=== PATIENT | male | born 1940 | race Caucasian/White ===

== ENCOUNTER → 2016-08-11 | Outpatient (REF) | payer OTHER ==
[2016-08-11 19:29] LABS: ALBUMIN 3.7 GM/DL (3.2-5.2); ALBUMIN/GLOBULIN RATIO 1.19 (1.00-1.93); BILIRUBIN,TOTAL 0.6 MG/DL (0.2-1.0); CALCIUM LEVEL 8.2 MG/DL (8.8-10.2); CREATININE FOR GFR 1.79 MG/DL (0.70-1.30); GLOMERULAR FILTRATION RATE 39.3 (>42); POTASSIUM SERUM 4.1 MEQ/L (3.5-5.1); TOTAL PROTEIN 6.8 GM/DL (6.4-8.2)
[2016-08-11 19:53] LABS: BASO # 0.1 K/mm3 (0.0-0.2); BASO % 0.8 % (0.0-1.0); EOS # 0.3 K/mm3 (0.0-0.50); EOS % 3.7 % (0.0-3.0); LARGE UNSTAINED CELL # 0.2 K/mm3 (0.0-0.4); LARGE UNSTAINED CELL % 2.3 % (0.0-4.0); LYMPH # 1.6 K/mm3 (1.5-4.5); LYMPH % 18.9 % (24.0-44.0); MEAN CORPUSCULAR HEMOGLOBIN 32.6 pg (27.0-33.0); MEAN CORPUSCULAR HGB CONC 33.6 g/dl (32.0-36.5); MONO # 0.6 K/mm3 (0.0-0.8); MONO % 7.4 % (0.0-5.0); NEUTROPHILS # 5.7 K/mm3 (1.8-7.7); PLATELET COUNT, AUTOMATED 219 k/mm3 (150-450); RED CELL DISTRIBUTION WIDTH 14.3 % (11.5-14.5); WHITE BLOOD COUNT 8.5 K/mm3 (4.0-10.0)
== END ==
LOC: M SFHCADAM 11:20
PROVIDERS: ATTEND Physician Assistant Medical
DX: I70.1 Atherosclerosis of renal artery (principal); N18.3 Chronic kidney disease, stage 3 (moderate); F32.9 Major depressive disorder, single episode, unspecified
CPT/HCPCS: 80053; 80061; 82306; 84443; 85025; G0463

== ENCOUNTER → 2018-03-22 | Outpatient (REF) | payer OTHER ==
[2018-03-22 19:32] LABS: ALBUMIN 3.8 GM/DL (3.2-5.2); ALBUMIN/GLOBULIN RATIO 1.19 (1.00-1.93); ALKALINE PHOSPHATASE 101 U/L (45-117); ALT/SGPT 31 U/L (12-78); ANION GAP 8 MEQ/L (8-16); AST/SGOT 20 U/L (7-37); BILIRUBIN,TOTAL 0.4 MG/DL (0.2-1.0); BLOOD UREA NITROGEN 33 MG/DL (7-18); CALCIUM LEVEL 8.9 MG/DL (8.8-10.2); CARBON DIOXIDE LEVEL 28 MEQ/L (21-32); CHLORIDE LEVEL 104 MEQ/L (98-107); CHOLESTEROL LEVEL 189 MG/DL (<200); CHOLESTEROL RISK RATIO 6.096 (<5); CREATININE FOR GFR 2.16 MG/DL (0.70-1.30); GLOMERULAR FILTRATION RATE 31.6 (>42); GLUCOSE, FASTING 87 MG/DL (70-100); HDL CHOLESTEROL 31 MG/DL (>40); MAGNESIUM LEVEL 2.5 MG/DL (1.8-2.4); NON-HDL-C 158 MG/DL; POTASSIUM SERUM 4.7 MEQ/L (3.5-5.1); SODIUM LEVEL 140 MEQ/L (136-145); TRIGLYCERIDES LEVEL 400 MG/DL (<150)
[2018-03-22 20:12] LABS: ESTIMATED AVERAGE GLUCOSE 131 MG/DL (60-110); HEMOGLOBIN A1c 6.2 %
== END ==
LOC: M SFHCADAM 13:42
DX: I70.1 Atherosclerosis of renal artery (principal); I10 Essential (primary) hypertension; N18.3 Chronic kidney disease, stage 3 (moderate)
CPT/HCPCS: 83735

== ENCOUNTER → 2018-09-10 | Outpatient (REF) | payer MEDICARE ==
[2018-09-10 19:53] LABS: BASO # 0.1 10^3/uL (0.0-0.2); BASO % 0.8 % (0.0-1.0); EOS # 0.3 10^3/uL (0.0-0.50); EOS % 3.2 % (0.0-3.0); HEMATOCRIT 45.5 % (42.0-52.0); LYMPH # 2.1 10^3/uL (1.5-4.5); LYMPH % 21.7 % (24.0-44.0); MEAN CORPUSCULAR HEMOGLOBIN 33.6 pg (27.0-33.0); NEUTROPHILS % 63.1 % (36.0-66.0); PLATELET COUNT, AUTOMATED 219 10^3/uL (150-450); RED BLOOD COUNT 4.46 10^6/uL (4.30-6.10); WHITE BLOOD COUNT 9.5 10^3/uL (4.0-10.0)
[2018-09-10 20:00] LABS: ALBUMIN 3.9 GM/DL (3.2-5.2); ALT/SGPT 28 U/L (12-78); BILIRUBIN,TOTAL 0.4 MG/DL (0.2-1.0); BLOOD UREA NITROGEN 29 MG/DL (7-18); CALCIUM LEVEL 9.2 MG/DL (8.8-10.2); CARBON DIOXIDE LEVEL 30 MEQ/L (21-32); CHLORIDE LEVEL 106 MEQ/L (98-107); CHOLESTEROL LEVEL 195 MG/DL (<200); CHOLESTEROL RISK RATIO 5.735 (<5); CREATININE FOR GFR 2.24 MG/DL (0.70-1.30); GLOMERULAR FILTRATION RATE 30.2 (>35); GLUCOSE, FASTING 79 MG/DL (70-100); HDL CHOLESTEROL 34 MG/DL (>40); NON-HDL-C 161 MG/DL; POTASSIUM SERUM 4.9 MEQ/L (3.5-5.1); SODIUM LEVEL 141 MEQ/L (136-145); TOTAL PROTEIN 7.5 GM/DL (6.4-8.2); TRIGLYCERIDES LEVEL 435 MG/DL (<150)
[2018-09-10 20:20] LABS: HEMOGLOBIN A1c 6.2 %
== END ==
LOC: M SFHCADAM 15:06
PROVIDERS: ATTEND Physician Assistant Medical
DX: I70.1 Atherosclerosis of renal artery (principal); N18.3 Chronic kidney disease, stage 3 (moderate); I12.9 Hypertensive chronic kidney disease with stage 1 through stage 4 chronic kidney disease, or unspecified chronic kidney disease
CPT/HCPCS: 80053; 80061; 82306; 83036; 85025; G0463

== ENCOUNTER → 2018-09-24 | Outpatient (REF) | payer MEDICARE | LOC: M LAB REF 13:36 | PROVIDERS: ATTEND Surgery | DX: L91.8 Other hypertrophic disorders of the skin (principal) ==

== ENCOUNTER → 2019-03-11 | Outpatient (REF) | payer MEDICARE ==
[2019-03-11 16:24] LABS: CREATININE FOR GFR 1.87 MG/DL (0.70-1.30); GLOMERULAR FILTRATION RATE 37.2 (>35); POTASSIUM SERUM 4.1 MEQ/L (3.5-5.1)
== END ==
LOC: M SFHCADAM 13:41
PROVIDERS: ATTEND Physician Assistant Medical
DX: I70.1 Atherosclerosis of renal artery (principal)

== ENCOUNTER → 2019-03-11 | Outpatient (CLI) | payer MEDICARE ==
[~2019-03-11] MED LIST: AMIL5TAB4 PO; ASPI81TA85 PO; CLOP75TA2 PO; ESCI10TA2 PO; GNP625TA PO; ICAPCAP3 PO; MINO2.5T PO; MOME0.1S; MYRB50TA PO; POTA20TA6 PO; TORS20TA2 PO; ZYLO300T6 PO
--- NOTE | 2019-03-11 15:04 | REP ---
REASON FOR EXAM: Lower rib pain. No priors. No history of trauma. The accompanying frontal view of the chest shows blunting of the left CP angle. Multiple views of the left ribs failed to definitively identify a fracture, however, the bones are demineralized and a subtle fracture could be obscured due to this. IMPRESSION: There is blunting of the left CP angle seen on the frontal view of the chest and when this is compared to the latest prior chest x-ray of 11/06/2012 it represents a change. This could be secondary to subsegmental atelectatic change or a small left pleural effusion. If atelectasis then it could be secondary to respiratory splinting from a rib fracture which I cannot definitively identify at this time. Clinical correlation and followup is suggested. Electronically Signed by Herberth Jerome DO 03/11/2019 03:31 P
== END ==
LOC: M ADAMS 13:37
PROVIDERS: ATTEND Physician Assistant Medical
DX: R07.81 Pleurodynia (principal)
CPT/HCPCS: 71101; 80048; G0463

== ENCOUNTER 2019-08-05 17:23 | Emergency (ER) | payer MEDICARE ==
[2019-08-05 18:19] LABS: BASO # 0.1 10^3/uL (0.0-0.2); BASO % 0.6 % (0.0-1.0); EOS # 0.1 10^3/uL (0.0-0.5); EOS % 1.4 % (0.0-3.0); HEMATOCRIT 47.7 % (42.0-52.0); HEMOGLOBIN 15.7 g/dl (13.5-17.5); LYMPH # 1.7 10^3/uL (1.5-5.0); LYMPH % 16.4 % (24.0-44.0); MEAN CORPUSCULAR HEMOGLOBIN 31.5 pg (27.0-33.0); MEAN CORPUSCULAR HGB CONC 32.9 g/dl (32.0-36.5); MEAN CORPUSCULAR VOLUME 95.8 fl (80.0-96.0); MONO # 0.8 10^3/uL (0.0-0.8); NEUTROPHILS # 7.4 10^3/uL (1.5-8.5); NEUTROPHILS % 73.2 % (36.0-66.0); PLATELET COUNT, AUTOMATED 286 10^3/uL (150-450); RED BLOOD COUNT 4.98 10^6/uL (4.30-6.10)
[2019-08-05] MEDS ORDERED: POTA20TA6 PO (18:23)
[2019-08-05] MEDS ORDERED: ONETAB32 PO (18:25)
--- NOTE | 2019-08-05 18:38 | REPVR ---
PROCEDURE INFORMATION: Exam: US Duplex Lower Extremity Veins, Bilateral Exam date and time: 08/05/2019 6:28 PM Age: 79 years old Clinical indication: Pain; Leg, lower; Bilateral; Additional info: Leg pain R/O dvt TECHNIQUE: Imaging protocol: Real-time duplex ultrasound of the extremities with 2-D laird scale, color Doppler flow and spectral waveform analysis with image documentation. Complete exam focused on the bilateral lower extremity veins. COMPARISON: No relevant prior studies available. FINDINGS: Right deep veins: Unremarkable. The common femoral, femoral, proximal profunda femoral and popliteal veins are patent without thrombus. Normal Doppler waveforms. Normal compressibility and/or augmentation response. Right superficial veins: Saphenofemoral junction is patent without thrombus. Left deep veins: The left common femoral vein is patent. There is incomplete compression of the proximal femoral vein. This could be related to chronic nonocclusive thrombus in this area. However, patient discomfort also limited the ability of the technologist to compress this area. Therefore, this could be artifactual. The mid/distal femoral, popliteal, and infrapopliteal veins are patent. Left superficial veins: Saphenofemoral junction is patent without thrombus. Soft tissues: Unremarkable. IMPRESSION: 1. Artifact versus questionable nonocclusive thrombus in the proximal left femoral vein 2. No DVT in the right lower extremity Electronically signed by: Joaquín Aceves On 08/05/2019 18:38:11 PM
[2019-08-05 18:47] LABS: ALBUMIN 3.5 GM/DL (3.2-5.2); BILIRUBIN,DIRECT 0.3 MG/DL (0.0-0.2); BILIRUBIN,TOTAL 0.7 MG/DL (0.2-1.0); CALCIUM LEVEL 9.7 MG/DL (8.8-10.2); CREATININE FOR GFR 1.78 MG/DL (0.70-1.30); FREE T4 1.69 NG/DL (0.76-1.46); GLOMERULAR FILTRATION RATE 39.2 (>35); MAGNESIUM LEVEL 2.3 MG/DL (1.8-2.4); PHOSPHORUS LEVEL 4.2 MG/DL (2.5-4.9); POTASSIUM SERUM 3.9 MEQ/L (3.5-5.1); THYROID STIMULATING HORMONE 2.9 uIU/ML (0.358-3.740); TOTAL PROTEIN 7.6 GM/DL (6.4-8.2)
[2019-08-05 19:20] LABS: INR 1.11
[2019-08-05 19:21] LABS: PARTIAL THROMBOPLASTIN TIME 30.9 SECONDS (25.0-38.4)
[2019-08-05 20:00] VITALS: BP 132/71
--- NOTE | 2019-08-06 12:36 | ED PDOC ---
Post-Departure Follow-Up extremity us faxd to grisel [facility]ery for fu Nicole White MD August 06, 2019 12:36
== END 2019-08-05 20:44 | disposition home or self-care (01) ==
LOC: EDBD 17:23 → M ED 17:23
DX: L89.159 Pressure ulcer of sacral region, unspecified stage (principal); R32 Unspecified urinary incontinence; R93.89 Abnormal findings on diagnostic imaging of other specified body structures; I10 Essential (primary) hypertension; N18.9 Chronic kidney disease, unspecified; M10.9 Gout, unspecified; N40.0 Benign prostatic hyperplasia without lower urinary tract symptoms; Z79.899 Other long term (current) drug therapy; Z79.82 Long term (current) use of aspirin; Z79.01 Long term (current) use of anticoagulants; Z88.0 Allergy status to penicillin; M79.661 Pain in right lower leg; M79.662 Pain in left lower leg

== ENCOUNTER → 2019-08-29 | Outpatient (CLI) | payer MEDICARE ==
[~2019-08-29] MED LIST changes: -ASPI81TA85 PO; +ASPI81TA86 PO; +ONETAB32 PO
--- NOTE | 2019-08-29 17:26 | REP ---
Clinical: History of deep venous thrombosis . Technique: Jacob scale and color Doppler evaluation left lower extremity using linear high frequency transducer. Comparison: 08/05/2019 Findings: Ultrasound examination of the left lower extremity deep venous structures from the common femoral vein to the popliteal vein demonstrates normal compressibility flow and wave patterns in response to respiration and augmentation. There is no evidence for deep venous thrombosis. Previously suggested nonocclusive thrombus in the proximal superficial femoral vein is not identified on current examination. Impression: No evidence for deep venous thrombosis.
== END ==
LOC: M WHC 13:52
PROVIDERS: ATTEND Physician Assistant Medical
DX: I82.412 Acute embolism and thrombosis of left femoral vein (principal)

== ENCOUNTER → 2020-10-12 | Outpatient (REF) | payer MEDICARE ==
[~2020-10-12] MED LIST changes: +ESCI10TA16 PO; -ESCI10TA2 PO
[2020-10-12 17:23] LABS: BASO % 0.4 % (0.0-1.0); EOS # 0.1 10^3/uL (0.0-0.5); EOS % 1.4 % (0.0-3.0); HEMATOCRIT 48.5 % (42.0-52.0); LYMPH # 1.3 10^3/uL (1.5-5.0); LYMPH % 18.5 % (24.0-44.0); MEAN CORPUSCULAR HEMOGLOBIN 31.6 pg (27.0-33.0); MEAN CORPUSCULAR VOLUME 95.8 fl (80.0-96.0); MONO # 0.5 10^3/uL (0.0-0.8); MONO % 7.2 % (2.0-8.0); NEUTROPHILS % 72.4 % (36.0-66.0); PLATELET COUNT, AUTOMATED 199 10^3/uL (150-450); RED BLOOD COUNT 5.06 10^6/uL (4.30-6.10); WHITE BLOOD COUNT 6.9 10^3/uL (4.0-10.0)
[2020-10-12 17:56] LABS: ALT/SGPT 28 U/L (12-78); BILIRUBIN,TOTAL 0.5 MG/DL (0.2-1.0); BLOOD UREA NITROGEN 23 MG/DL (7-18); CALCIUM LEVEL 8.9 MG/DL (8.8-10.2); CARBON DIOXIDE LEVEL 30 MEQ/L (21-32); CHLORIDE LEVEL 106 MEQ/L (98-107); CHOLESTEROL LEVEL 153 MG/DL (<200); CHOLESTEROL RISK RATIO 4.135 (<5); CREATININE FOR GFR 0.85 MG/DL (0.70-1.30); GLOMERULAR FILTRATION RATE > 60.0 (>35); GLUCOSE, FASTING 103 MG/DL (70-100); HDL CHOLESTEROL 37 MG/DL (>40); LDL CHOLESTEROL 96 MG/DL (<100); NON-HDL-C 116 MG/DL; POTASSIUM SERUM 4.1 MEQ/L (3.5-5.1); SODIUM LEVEL 142 MEQ/L (136-145); TOTAL PROTEIN 6.9 GM/DL (6.4-8.2); TRIGLYCERIDES LEVEL 99 MG/DL (<150)
== END ==
LOC: M SFHCADAM 14:32
PROVIDERS: ATTEND Physician Assistant Medical
DX: I70.1 Atherosclerosis of renal artery (principal); I12.9 Hypertensive chronic kidney disease with stage 1 through stage 4 chronic kidney disease, or unspecified chronic kidney disease; F32.9 Major depressive disorder, single episode, unspecified; N18.32 Chronic kidney disease, stage 3b

== ENCOUNTER 2022-10-03 10:47 | Observation (INO) | payer MEDICARE, MEDICAID ==
[~2022-10-03] VITALS: Ht 180.3 cm; Wt 56.0 kg
[~2022-10-03 10:47] MED LIST changes: +POTA-151 PO; -POTA20TA6 PO
[2022-10-03 12:46] LABS: BASO # 0.1 10^3/uL (0.0-0.2); BASO % 0.7 % (0.0-1.0); EOS # 0.1 10^3/uL (0.0-0.5); EOS % 1.9 % (0.0-3.0); HEMOGLOBIN 14.3 g/dl (13.5-17.5); LYMPH # 0.9 10^3/uL (1.5-5.0); LYMPH % 12.7 % (24.0-44.0); MEAN CORPUSCULAR HEMOGLOBIN 32.3 pg (27.0-33.0); MEAN CORPUSCULAR HGB CONC 33.3 g/dl (32.0-36.5); MEAN CORPUSCULAR VOLUME 97.1 fl (80.0-96.0); MONO # 0.6 10^3/uL (0.0-0.8); MONO % 8.8 % (2.0-8.0); NEUTROPHILS # 5.5 10^3/uL (1.5-8.5); NEUTROPHILS % 75.6 % (36.0-66.0); PLATELET COUNT, AUTOMATED 170 10^3/uL (150-450); RED BLOOD COUNT 4.43 10^6/uL (4.30-6.10); WHITE BLOOD COUNT 7.2 10^3/uL (4.0-10.0)
[2022-10-03 13:12] LABS: BLOOD UREA NITROGEN 28 MG/DL (9-23); CALCIUM LEVEL 8.8 MG/DL (8.3-10.6); CARBON DIOXIDE LEVEL 26 MMOL/L (20-31); CHLORIDE LEVEL 111 MMOL/L (98-107); CREATININE FOR GFR 0.62 MG/DL (0.70-1.30); GLOMERULAR FILTRATION RATE > 60.0 (>35); GLUCOSE, FASTING 127 MG/DL (74-106); POTASSIUM SERUM 4.1 MMOL/L (3.5-5.1); SODIUM LEVEL 141 MMOL/L (136-145)
[2022-10-03] MEDS ORDERED: TORSEMIDE 20 MG TAB PO SCH (13:40)
[2022-10-03] MEDS ORDERED: MOM 30ML SUSPENSION UDC PO PRN (13:45)
[2022-10-03] MEDS ORDERED: FLEET ENEMA PR PRN (13:45)
[2022-10-03] MEDS ORDERED: MED REC IN PROGRESS XX SCH (14:10)
[2022-10-03 14:36] LABS: RSV AMPLIFICATION NEGATIVE (NEGATIVE)
[2022-10-03] MEDS ORDERED: MED REC CURRENTLY UNOBTAINABLE XX SCH (15:20)
[2022-10-03] MEDS ORDERED: ACET-897 PO (18:18)
[2022-10-03] MEDS ORDERED: LEXA1TAB PO (18:18)
[2022-10-03] MEDS ORDERED: med rec comment (18:19)
[2022-10-03] MEDS ORDERED: HOME MED LIST COMPLETE! XX SCH (18:20)
[2022-10-03 19:00] VITALS: BP 166/88; TEMP 97.7; O2SAT 94
[2022-10-03] MEDS: amLODIPine 5 MG TAB PO SCH (20:11)
[2022-10-03] MEDS ORDERED: aMILoride 5 MG TAB PO SCH (21:00)
[2022-10-04 06:29] VITALS: BP 164/84; TEMP 97.7; O2SAT 95
[2022-10-04 06:43] LABS: BLOOD UREA NITROGEN 23 MG/DL (9-23); CALCIUM LEVEL 8.2 MG/DL (8.3-10.6); CARBON DIOXIDE LEVEL 28 MMOL/L (20-31); CHLORIDE LEVEL 109 MMOL/L (98-107); CREATININE FOR GFR 0.57 MG/DL (0.70-1.30); GLOMERULAR FILTRATION RATE > 60.0 (>35); GLUCOSE, FASTING 89 MG/DL (74-106); SODIUM LEVEL 142 MMOL/L (136-145)
[2022-10-04] MEDS: ESCITALOPRAM OXALATE 10 MG TAB (LEXAPRO) PO SCH (08:48)
[2022-10-04] MEDS: CLOPIDOGREL 75 MG TAB PO SCH (08:48)
[2022-10-04] MEDS: aMILoride 5 MG TAB PO SCH (08:49)
[2022-10-04] MEDS: ENOXAPARIN 40MG/0.4ML SYRINGE (J1650 PER 10MG) SC SCH (08:49)
[2022-10-04] MEDS: amLODIPine 5 MG TAB PO SCH (08:50)
[2022-10-04 16:27] VITALS: BP 154/82
[2022-10-04] MEDS: ISOSORBIDE DIN. (ISORDIL) 20 MG TAB PO SCH (20:49)
[2022-10-05 06:12] VITALS: BP 130/83; TEMP 97.9; O2SAT 93
[2022-10-05 06:13] LABS: BLOOD UREA NITROGEN 26 MG/DL (9-23); CARBON DIOXIDE LEVEL 28 MMOL/L (20-31); CHLORIDE LEVEL 108 MMOL/L (98-107); CREATININE FOR GFR 0.79 MG/DL (0.70-1.30); GLOMERULAR FILTRATION RATE > 60.0 (>35); GLUCOSE, FASTING 86 MG/DL (74-106); SODIUM LEVEL 142 MMOL/L (136-145)
[2022-10-05] MEDS: ENOXAPARIN 40MG/0.4ML SYRINGE (J1650 PER 10MG) SC SCH (08:56)
[2022-10-05] MEDS: aMILoride 5 MG TAB PO SCH (09:00)
[2022-10-05] MEDS: CLOPIDOGREL 75 MG TAB PO SCH (09:00)
[2022-10-05] MEDS: ESCITALOPRAM OXALATE 10 MG TAB (LEXAPRO) PO SCH (09:00)
[2022-10-05] MEDS: ISOSORBIDE DIN. (ISORDIL) 20 MG TAB PO SCH ×2 (09:01→21:00)
[2022-10-05 14:14] LABS: HEMATOCRIT 41.2 % (42.0-52.0); HEMOGLOBIN 13.6 g/dl (13.5-17.5); MEAN CORPUSCULAR HEMOGLOBIN 32.5 pg (27.0-33.0); MEAN CORPUSCULAR VOLUME 98.6 fl (80.0-96.0); PLATELET COUNT, AUTOMATED 184 10^3/uL (150-450); RED BLOOD COUNT 4.18 10^6/uL (4.30-6.10); WHITE BLOOD COUNT 6.9 10^3/uL (4.0-10.0)
[2022-10-05 14:57] LABS: BLOOD UREA NITROGEN 30 MG/DL (9-23); CALCIUM LEVEL 8.1 MG/DL (8.3-10.6); CARBON DIOXIDE LEVEL 27 MMOL/L (20-31); CHLORIDE LEVEL 110 MMOL/L (98-107); CREATININE FOR GFR 0.76 MG/DL (0.70-1.30); GLOMERULAR FILTRATION RATE > 60.0 (>35); GLUCOSE, FASTING 118 MG/DL (74-106); POTASSIUM SERUM 4.2 MMOL/L (3.5-5.1); SODIUM LEVEL 144 MMOL/L (136-145)
[2022-10-06 06:35] LABS: BLOOD UREA NITROGEN 29 MG/DL (9-23); CALCIUM LEVEL 8.1 MG/DL (8.3-10.6); CARBON DIOXIDE LEVEL 27 MMOL/L (20-31); CHLORIDE LEVEL 110 MMOL/L (98-107); CREATININE FOR GFR 0.74 MG/DL (0.70-1.30); GLOMERULAR FILTRATION RATE > 60.0 (>35); GLUCOSE, FASTING 89 MG/DL (74-106); POTASSIUM SERUM 4.1 MMOL/L (3.5-5.1); SODIUM LEVEL 143 MMOL/L (136-145)
[2022-10-06 07:05] VITALS: BP 145/83; TEMP 98.2; O2SAT 95
[2022-10-06] MEDS: ACETAMINOPHEN TAB 650MG DOSE (2X325MG) PO PRN (09:45)
[2022-10-06] MEDS: ENOXAPARIN 40MG/0.4ML SYRINGE (J1650 PER 10MG) SC SCH (09:45)
[2022-10-06] MEDS: aMILoride 5 MG TAB PO SCH (09:45)
[2022-10-06] MEDS: ESCITALOPRAM OXALATE 10 MG TAB (LEXAPRO) PO SCH (09:47)
[2022-10-06] MEDS: ISOSORBIDE DIN. (ISORDIL) 20 MG TAB PO SCH ×2 (09:47→20:21)
[2022-10-06] MEDS: CLOPIDOGREL 75 MG TAB PO SCH (09:47)
[2022-10-07 06:00] VITALS: BP 137/78; TEMP 97.7; O2SAT 93
[2022-10-07 07:08] LABS: BLOOD UREA NITROGEN 25 MG/DL (9-23); CALCIUM LEVEL 8.4 MG/DL (8.3-10.6); CARBON DIOXIDE LEVEL 27 MMOL/L (20-31); CHLORIDE LEVEL 107 MMOL/L (98-107); CREATININE FOR GFR 0.67 MG/DL (0.70-1.30); GLOMERULAR FILTRATION RATE > 60.0 (>35); GLUCOSE, FASTING 87 MG/DL (74-106); SODIUM LEVEL 139 MMOL/L (136-145)
[2022-10-07] MEDS: ENOXAPARIN 40MG/0.4ML SYRINGE (J1650 PER 10MG) SC SCH (08:45)
[2022-10-07] MEDS: aMILoride 5 MG TAB PO SCH (08:45)
[2022-10-07] MEDS: CLOPIDOGREL 75 MG TAB PO SCH (08:45)
[2022-10-07] MEDS: ISOSORBIDE DIN. (ISORDIL) 20 MG TAB PO SCH ×2 (08:46→20:56)
[2022-10-07] MEDS: ESCITALOPRAM OXALATE 10 MG TAB (LEXAPRO) PO SCH (08:46)
[2022-10-08 06:00] VITALS: BP 136/74; TEMP 97.9; O2SAT 96
[2022-10-08 06:56] LABS: BLOOD UREA NITROGEN 25 MG/DL (9-23); CALCIUM LEVEL 8.5 MG/DL (8.3-10.6); CARBON DIOXIDE LEVEL 26 MMOL/L (20-31); CHLORIDE LEVEL 107 MMOL/L (98-107); CREATININE FOR GFR 0.68 MG/DL (0.70-1.30); GLOMERULAR FILTRATION RATE > 60.0 (>35); GLUCOSE, FASTING 80 MG/DL (74-106); POTASSIUM SERUM 4.3 MMOL/L (3.5-5.1); SODIUM LEVEL 141 MMOL/L (136-145)
[2022-10-08] MEDS: ENOXAPARIN 40MG/0.4ML SYRINGE (J1650 PER 10MG) SC SCH (08:54)
[2022-10-08] MEDS: ISOSORBIDE DIN. (ISORDIL) 20 MG TAB PO SCH ×2 (08:55→20:32)
[2022-10-08] MEDS: ESCITALOPRAM OXALATE 10 MG TAB (LEXAPRO) PO SCH (08:55)
[2022-10-08] MEDS: CLOPIDOGREL 75 MG TAB PO SCH (08:55)
[2022-10-08] MEDS: aMILoride 5 MG TAB PO SCH (08:55)
[2022-10-08] MEDS: ACETAMINOPHEN TAB 650MG DOSE (2X325MG) PO PRN (20:01)
[2022-10-09 06:00] VITALS: BP 135/72; TEMP 97.5; O2SAT 94
[2022-10-09] MEDS: aMILoride 5 MG TAB PO SCH (10:06)
[2022-10-09] MEDS: ESCITALOPRAM OXALATE 10 MG TAB (LEXAPRO) PO SCH (10:07)
[2022-10-09] MEDS: CLOPIDOGREL 75 MG TAB PO SCH (10:07)
[2022-10-09] MEDS: ISOSORBIDE DIN. (ISORDIL) 20 MG TAB PO SCH ×2 (10:07→20:21)
[2022-10-09] MEDS: ENOXAPARIN 40MG/0.4ML SYRINGE (J1650 PER 10MG) SC SCH (10:08)
[2022-10-09 13:50] LABS: HEMATOCRIT 44.5 % (42.0-52.0); HEMOGLOBIN 14.8 g/dl (13.5-17.5); MEAN CORPUSCULAR HEMOGLOBIN 32.2 pg (27.0-33.0); MEAN CORPUSCULAR HGB CONC 33.3 g/dl (32.0-36.5); MEAN CORPUSCULAR VOLUME 96.9 fl (80.0-96.0); PLATELET COUNT, AUTOMATED 206 10^3/uL (150-450); RED BLOOD COUNT 4.59 10^6/uL (4.30-6.10); WHITE BLOOD COUNT 5.9 10^3/uL (4.0-10.0)
[2022-10-09 14:11] LABS: BLOOD UREA NITROGEN 23 MG/DL (9-23); CALCIUM LEVEL 8.5 MG/DL (8.3-10.6); CARBON DIOXIDE LEVEL 29 MMOL/L (20-31); CHLORIDE LEVEL 105 MMOL/L (98-107); CREATININE FOR GFR 0.77 MG/DL (0.70-1.30); GLOMERULAR FILTRATION RATE > 60.0 (>35); GLUCOSE, FASTING 99 MG/DL (74-106); POTASSIUM SERUM 4.4 MMOL/L (3.5-5.1); SODIUM LEVEL 140 MMOL/L (136-145)
[2022-10-09 20:20] VITALS: BP 127/57
[2022-10-09] MEDS: ACETAMINOPHEN TAB 650MG DOSE (2X325MG) PO PRN (20:24)
[2022-10-10 05:52] VITALS: BP 138/66; TEMP 97.9; O2SAT 92
[2022-10-10] MEDS: CLOPIDOGREL 75 MG TAB PO SCH (09:57)
[2022-10-10] MEDS: ENOXAPARIN 40MG/0.4ML SYRINGE (J1650 PER 10MG) SC SCH (09:57)
[2022-10-10] MEDS: ISOSORBIDE DIN. (ISORDIL) 20 MG TAB PO SCH ×2 (09:57→20:59)
[2022-10-10] MEDS: aMILoride 5 MG TAB PO SCH (09:57)
[2022-10-10] MEDS: ESCITALOPRAM OXALATE 10 MG TAB (LEXAPRO) PO SCH (09:57)
[2022-10-10 20:59] VITALS: BP 138/60
[2022-10-11 06:00] VITALS: BP 130/73; TEMP 97.7; O2SAT 92
[2022-10-11] MEDS: aMILoride 5 MG TAB PO SCH (08:50)
[2022-10-11] MEDS: CLOPIDOGREL 75 MG TAB PO SCH (08:50)
[2022-10-11] MEDS: ISOSORBIDE DIN. (ISORDIL) 20 MG TAB PO SCH ×2 (08:50→21:00)
[2022-10-11] MEDS: ENOXAPARIN 40MG/0.4ML SYRINGE (J1650 PER 10MG) SC SCH (08:50)
[2022-10-11] MEDS: ESCITALOPRAM OXALATE 10 MG TAB (LEXAPRO) PO SCH (08:51)
[2022-10-11] MEDS: ACETAMINOPHEN TAB 650MG DOSE (2X325MG) PO PRN (15:46)
[2022-10-12 06:29] VITALS: BP 142/70; TEMP 97.9; O2SAT 96
[2022-10-12] MEDS: aMILoride 5 MG TAB PO SCH (08:35)
[2022-10-12] MEDS: ESCITALOPRAM OXALATE 10 MG TAB (LEXAPRO) PO SCH (08:35)
[2022-10-12] MEDS: ENOXAPARIN 40MG/0.4ML SYRINGE (J1650 PER 10MG) SC SCH (08:35)
[2022-10-12] MEDS: ISOSORBIDE DIN. (ISORDIL) 20 MG TAB PO SCH ×2 (08:35→21:00)
[2022-10-12] MEDS: CLOPIDOGREL 75 MG TAB PO SCH (08:35)
[2022-10-12 13:33] LABS: HEMATOCRIT 44.4 % (42.0-52.0); HEMOGLOBIN 14.8 g/dl (13.5-17.5); MEAN CORPUSCULAR HEMOGLOBIN 32.6 pg (27.0-33.0); MEAN CORPUSCULAR HGB CONC 33.3 g/dl (32.0-36.5); MEAN CORPUSCULAR VOLUME 97.8 fl (80.0-96.0); PLATELET COUNT, AUTOMATED 214 10^3/uL (150-450); RED BLOOD COUNT 4.54 10^6/uL (4.30-6.10); WHITE BLOOD COUNT 5.8 10^3/uL (4.0-10.0)
[2022-10-12 14:08] LABS: BLOOD UREA NITROGEN 26 MG/DL (9-23); CARBON DIOXIDE LEVEL 28 MMOL/L (20-31); CHLORIDE LEVEL 108 MMOL/L (98-107); CREATININE FOR GFR 0.75 MG/DL (0.70-1.30); GLOMERULAR FILTRATION RATE > 60.0 (>35); GLUCOSE, FASTING 104 MG/DL (74-106); POTASSIUM SERUM 4.2 MMOL/L (3.5-5.1); SODIUM LEVEL 140 MMOL/L (136-145)
[2022-10-13 06:01] VITALS: BP 132/70; TEMP 97.9; O2SAT 96
[2022-10-13] MEDS: aMILoride 5 MG TAB PO SCH (07:56)
[2022-10-13] MEDS: ENOXAPARIN 40MG/0.4ML SYRINGE (J1650 PER 10MG) SC SCH (07:56)
[2022-10-13] MEDS: ESCITALOPRAM OXALATE 10 MG TAB (LEXAPRO) PO SCH (07:57)
[2022-10-13] MEDS: ACETAMINOPHEN TAB 650MG DOSE (2X325MG) PO PRN (07:57)
[2022-10-13] MEDS: ISOSORBIDE DIN. (ISORDIL) 20 MG TAB PO SCH ×2 (07:58→20:53)
[2022-10-13] MEDS: CLOPIDOGREL 75 MG TAB PO SCH (07:58)
[2022-10-13 20:53] VITALS: BP 131/70; TEMP 97.9; O2SAT 97
[2022-10-14 06:00] VITALS: BP 136/73; TEMP 97.5; O2SAT 95
[2022-10-14] MEDS: ISOSORBIDE DIN. (ISORDIL) 20 MG TAB PO SCH ×2 (09:00→20:10)
[2022-10-14] MEDS: CLOPIDOGREL 75 MG TAB PO SCH (10:10)
[2022-10-14] MEDS: ESCITALOPRAM OXALATE 10 MG TAB (LEXAPRO) PO SCH (10:10)
[2022-10-14] MEDS: aMILoride 5 MG TAB PO SCH (10:11)
[2022-10-14] MEDS: RIVAROXABAN 10MG TAB (XARELTO) PO SCH (17:23)
[2022-10-14 20:11] VITALS: BP 149/75
[2022-10-14] MEDS: ACETAMINOPHEN TAB 650MG DOSE (2X325MG) PO PRN (21:10)
[2022-10-15 06:00] VITALS: BP 117/68; TEMP 97.7; O2SAT 94
[2022-10-15] MEDS: ACETAMINOPHEN TAB 650MG DOSE (2X325MG) PO PRN (06:05)
[2022-10-15] MEDS: ISOSORBIDE DIN. (ISORDIL) 20 MG TAB PO SCH ×2 (09:00→20:13)
[2022-10-15] MEDS: CLOPIDOGREL 75 MG TAB PO SCH (11:07)
[2022-10-15] MEDS: ESCITALOPRAM OXALATE 10 MG TAB (LEXAPRO) PO SCH (11:07)
[2022-10-15] MEDS: aMILoride 5 MG TAB PO SCH (11:09)
[2022-10-15 14:42] LABS: BASO # 0.1 10^3/uL (0.0-0.2); BASO % 1.1 % (0.0-1.0); EOS # 0.1 10^3/uL (0.0-0.5); EOS % 2.4 % (0.0-3.0); HEMATOCRIT 47.4 % (42.0-52.0); HEMOGLOBIN 15.9 g/dl (13.5-17.5); LYMPH % 20.7 % (24.0-44.0); MEAN CORPUSCULAR HEMOGLOBIN 32.4 pg (27.0-33.0); MEAN CORPUSCULAR HGB CONC 33.5 g/dl (32.0-36.5); MEAN CORPUSCULAR VOLUME 96.5 fl (80.0-96.0); MONO # 0.4 10^3/uL (0.0-0.8); MONO % 7.8 % (2.0-8.0); NEUTROPHILS # 3.2 10^3/uL (1.5-8.5); NEUTROPHILS % 67.8 % (36.0-66.0); PLATELET COUNT, AUTOMATED 206 10^3/uL (150-450); RED BLOOD COUNT 4.91 10^6/uL (4.30-6.10); WHITE BLOOD COUNT 4.6 10^3/uL (4.0-10.0)
[2022-10-15 15:10] LABS: BLOOD UREA NITROGEN 26 MG/DL (9-23); CALCIUM LEVEL 9.1 MG/DL (8.3-10.6); CARBON DIOXIDE LEVEL 27 MMOL/L (20-31); CHLORIDE LEVEL 108 MMOL/L (98-107); CREATININE FOR GFR 0.69 MG/DL (0.70-1.30); GLOMERULAR FILTRATION RATE > 60.0 (>35); GLUCOSE, FASTING 89 MG/DL (74-106); POTASSIUM SERUM 4.2 MMOL/L (3.5-5.1); SODIUM LEVEL 140 MMOL/L (136-145)
[2022-10-15] MEDS: RIVAROXABAN 10MG TAB (XARELTO) PO SCH (18:34)
[2022-10-16 06:00] VITALS: BP 130/75; TEMP 97.2; O2SAT 94
[2022-10-16 08:27] VITALS: BP 105/77
[2022-10-16] MEDS: amLODIPine 5 MG TAB PO SCH (08:28)
[2022-10-16] MEDS: ISOSORBIDE DIN. (ISORDIL) 20 MG TAB PO SCH ×2 (08:28→21:00)
[2022-10-16] MEDS: ESCITALOPRAM OXALATE 10 MG TAB (LEXAPRO) PO SCH (08:33)
[2022-10-16] MEDS: CLOPIDOGREL 75 MG TAB PO SCH (08:33)
[2022-10-16] MEDS: aMILoride 5 MG TAB PO SCH (08:33)
[2022-10-16 14:21] LABS: HEMATOCRIT 46.1 % (42.0-52.0); HEMOGLOBIN 15.1 g/dl (13.5-17.5); MEAN CORPUSCULAR HGB CONC 32.8 g/dl (32.0-36.5); MEAN CORPUSCULAR VOLUME 97.7 fl (80.0-96.0); PLATELET COUNT, AUTOMATED 198 10^3/uL (150-450); RED BLOOD COUNT 4.72 10^6/uL (4.30-6.10); WHITE BLOOD COUNT 5.2 10^3/uL (4.0-10.0)
[2022-10-16 14:45] LABS: BLOOD UREA NITROGEN 27 MG/DL (9-23); CALCIUM LEVEL 8.7 MG/DL (8.3-10.6); CARBON DIOXIDE LEVEL 26 MMOL/L (20-31); CHLORIDE LEVEL 107 MMOL/L (98-107); CREATININE FOR GFR 0.73 MG/DL (0.70-1.30); GLOMERULAR FILTRATION RATE > 60.0 (>35); GLUCOSE, FASTING 88 MG/DL (74-106); POTASSIUM SERUM 4.3 MMOL/L (3.5-5.1); SODIUM LEVEL 139 MMOL/L (136-145)
[2022-10-16] MEDS: RIVAROXABAN 10MG TAB (XARELTO) PO SCH (17:37)
[2022-10-17 05:29] VITALS: BP 159/71; TEMP 98.1; O2SAT 96
[2022-10-17] MEDS: aMILoride 5 MG TAB PO SCH (08:57)
[2022-10-17] MEDS: CLOPIDOGREL 75 MG TAB PO SCH (08:57)
[2022-10-17] MEDS: amLODIPine 5 MG TAB PO SCH (08:57)
[2022-10-17] MEDS: ESCITALOPRAM OXALATE 10 MG TAB (LEXAPRO) PO SCH (08:57)
[2022-10-17] MEDS: ISOSORBIDE DIN. (ISORDIL) 20 MG TAB PO SCH ×2 (08:57→21:00)
[2022-10-17] MEDS: RIVAROXABAN 10MG TAB (XARELTO) PO SCH (17:46)
[2022-10-17 22:00] VITALS: BP 104/76; TEMP 98; O2SAT 95
[2022-10-18 06:00] VITALS: BP 152/79; TEMP 98.1; O2SAT 97
[2022-10-18] MEDS: ISOSORBIDE DIN. (ISORDIL) 20 MG TAB PO SCH ×2 (09:14→20:59)
[2022-10-18] MEDS: aMILoride 5 MG TAB PO SCH (09:14)
[2022-10-18] MEDS: amLODIPine 5 MG TAB PO SCH (09:14)
[2022-10-18] MEDS: CLOPIDOGREL 75 MG TAB PO SCH (09:15)
[2022-10-18] MEDS: ESCITALOPRAM OXALATE 10 MG TAB (LEXAPRO) PO SCH (09:15)
[2022-10-18] MEDS: RIVAROXABAN 10MG TAB (XARELTO) PO SCH (18:01)
[2022-10-19 05:52] VITALS: BP 138/72; TEMP 97.7; O2SAT 93
[2022-10-19] MEDS: ESCITALOPRAM OXALATE 10 MG TAB (LEXAPRO) PO SCH (10:01)
[2022-10-19] MEDS: aMILoride 5 MG TAB PO SCH (10:02)
[2022-10-19] MEDS: CLOPIDOGREL 75 MG TAB PO SCH (10:04)
[2022-10-19] MEDS: ISOSORBIDE DIN. (ISORDIL) 20 MG TAB PO SCH ×2 (10:04→22:09)
[2022-10-19] MEDS: amLODIPine 5 MG TAB PO SCH (10:05)
[2022-10-19 14:16] LABS: HEMATOCRIT 43.3 % (42.0-52.0); HEMOGLOBIN 14.3 g/dl (13.5-17.5); MEAN CORPUSCULAR HEMOGLOBIN 32.1 pg (27.0-33.0); MEAN CORPUSCULAR VOLUME 97.3 fl (80.0-96.0); PLATELET COUNT, AUTOMATED 208 10^3/uL (150-450); RED BLOOD COUNT 4.45 10^6/uL (4.30-6.10); WHITE BLOOD COUNT 5.4 10^3/uL (4.0-10.0)
[2022-10-19 14:36] LABS: BLOOD UREA NITROGEN 22 MG/DL (9-23); CALCIUM LEVEL 8.8 MG/DL (8.3-10.6); CARBON DIOXIDE LEVEL 27 MMOL/L (20-31); CHLORIDE LEVEL 105 MMOL/L (98-107); CREATININE FOR GFR 0.71 MG/DL (0.70-1.30); GLOMERULAR FILTRATION RATE > 60.0 (>35); GLUCOSE, FASTING 127 MG/DL (74-106); POTASSIUM SERUM 4.3 MMOL/L (3.5-5.1); SODIUM LEVEL 140 MMOL/L (136-145)
[2022-10-19] MEDS: RIVAROXABAN 10MG TAB (XARELTO) PO SCH (19:16)
[2022-10-19 21:41] VITALS: BP 116/59
[2022-10-20 05:41] VITALS: BP 124/73; TEMP 98.1; O2SAT 96
[2022-10-20] MEDS: ISOSORBIDE DIN. (ISORDIL) 20 MG TAB PO SCH ×2 (09:00→21:00)
[2022-10-20] MEDS: amLODIPine 5 MG TAB PO SCH (09:00)
[2022-10-20] MEDS: ESCITALOPRAM OXALATE 10 MG TAB (LEXAPRO) PO SCH (10:37)
[2022-10-20] MEDS: CLOPIDOGREL 75 MG TAB PO SCH (10:37)
[2022-10-20] MEDS: aMILoride 5 MG TAB PO SCH (10:37)
[2022-10-20] MEDS: RIVAROXABAN 10MG TAB (XARELTO) PO SCH (18:14)
[2022-10-21 06:00] VITALS: BP 130/72; TEMP 97.9; O2SAT 96
[2022-10-21] MEDS: ISOSORBIDE DIN. (ISORDIL) 20 MG TAB PO SCH ×2 (09:00→21:00)
[2022-10-21] MEDS: CLOPIDOGREL 75 MG TAB PO SCH (09:53)
[2022-10-21] MEDS: amLODIPine 5 MG TAB PO SCH (09:53)
[2022-10-21] MEDS: aMILoride 5 MG TAB PO SCH (09:54)
[2022-10-21] MEDS: ESCITALOPRAM OXALATE 10 MG TAB (LEXAPRO) PO SCH (09:54)
[2022-10-21] MEDS: RIVAROXABAN 10MG TAB (XARELTO) PO SCH (18:01)
[2022-10-22 05:36] VITALS: BP 140/78; TEMP 97.7; O2SAT 96
[2022-10-22] MEDS: ISOSORBIDE DIN. (ISORDIL) 20 MG TAB PO SCH ×2 (09:00→21:45)
[2022-10-22] MEDS: ESCITALOPRAM OXALATE 10 MG TAB (LEXAPRO) PO SCH (09:42)
[2022-10-22] MEDS: aMILoride 5 MG TAB PO SCH (09:42)
[2022-10-22] MEDS: CLOPIDOGREL 75 MG TAB PO SCH (09:42)
[2022-10-22] MEDS: amLODIPine 5 MG TAB PO SCH (09:43)
[2022-10-22] MEDS: RIVAROXABAN 10MG TAB (XARELTO) PO SCH (17:52)
[2022-10-23 06:08] VITALS: BP 105/63; TEMP 97.9; O2SAT 94
[2022-10-23] MEDS: CLOPIDOGREL 75 MG TAB PO SCH (10:13)
[2022-10-23] MEDS: aMILoride 5 MG TAB PO SCH (10:13)
[2022-10-23] MEDS: ESCITALOPRAM OXALATE 10 MG TAB (LEXAPRO) PO SCH (10:15)
[2022-10-23] MEDS: ISOSORBIDE DIN. (ISORDIL) 20 MG TAB PO SCH ×2 (10:15→21:00)
[2022-10-23] MEDS: amLODIPine 5 MG TAB PO SCH (10:15)
[2022-10-23 14:25] LABS: HEMATOCRIT 46.2 % (42.0-52.0); MEAN CORPUSCULAR HEMOGLOBIN 31.8 pg (27.0-33.0); MEAN CORPUSCULAR HGB CONC 32.5 g/dl (32.0-36.5); MEAN CORPUSCULAR VOLUME 98.1 fl (80.0-96.0); PLATELET COUNT, AUTOMATED 215 10^3/uL (150-450); RED BLOOD COUNT 4.71 10^6/uL (4.30-6.10); WHITE BLOOD COUNT 6.2 10^3/uL (4.0-10.0)
[2022-10-23 14:38] LABS: BLOOD UREA NITROGEN 29 MG/DL (9-23); CALCIUM LEVEL 8.7 MG/DL (8.3-10.6); CARBON DIOXIDE LEVEL 24 MMOL/L (20-31); CHLORIDE LEVEL 107 MMOL/L (98-107); CREATININE FOR GFR 0.74 MG/DL (0.70-1.30); GLOMERULAR FILTRATION RATE > 60.0 (>35); GLUCOSE, FASTING 115 MG/DL (74-106); POTASSIUM SERUM 4.4 MMOL/L (3.5-5.1); SODIUM LEVEL 142 MMOL/L (136-145)
[2022-10-23] MEDS: RIVAROXABAN 10MG TAB (XARELTO) PO SCH (18:04)
[2022-10-24 05:59] VITALS: BP 128/65; TEMP 97.9; O2SAT 95
[2022-10-24] MEDS: aMILoride 5 MG TAB PO SCH (09:44)
[2022-10-24] MEDS: CLOPIDOGREL 75 MG TAB PO SCH (09:46)
[2022-10-24] MEDS: amLODIPine 5 MG TAB PO SCH (09:46)
[2022-10-24] MEDS: ISOSORBIDE DIN. (ISORDIL) 20 MG TAB PO SCH ×2 (09:47→21:19)
[2022-10-24] MEDS: ESCITALOPRAM OXALATE 10 MG TAB (LEXAPRO) PO SCH (09:47)
[2022-10-24] MEDS: RIVAROXABAN 10MG TAB (XARELTO) PO SCH (18:06)
[2022-10-25 05:40] VITALS: BP 143/74; TEMP 98.2; O2SAT 95
[2022-10-25] MEDS: ESCITALOPRAM OXALATE 10 MG TAB (LEXAPRO) PO SCH (09:38)
[2022-10-25] MEDS: amLODIPine 5 MG TAB PO SCH (09:38)
[2022-10-25] MEDS: aMILoride 5 MG TAB PO SCH (09:38)
[2022-10-25] MEDS: ISOSORBIDE DIN. (ISORDIL) 20 MG TAB PO SCH ×2 (09:39→20:59)
[2022-10-25] MEDS: CLOPIDOGREL 75 MG TAB PO SCH (09:39)
[2022-10-25] MEDS: NYSTATIN 500,000U/5ML SUSP UDC SS SCH ×3 (12:19→20:57)
[2022-10-25] MEDS: RIVAROXABAN 10MG TAB (XARELTO) PO SCH (18:16)
[2022-10-26 06:39] VITALS: BP 131/86; TEMP 97.2; O2SAT 96
[2022-10-26] MEDS: ISOSORBIDE DIN. (ISORDIL) 20 MG TAB PO SCH ×2 (08:49→21:19)
[2022-10-26] MEDS: amLODIPine 5 MG TAB PO SCH (08:50)
[2022-10-26] MEDS: NYSTATIN 500,000U/5ML SUSP UDC SS SCH ×3 (08:50→21:19)
[2022-10-26] MEDS: CLOPIDOGREL 75 MG TAB PO SCH (08:50)
[2022-10-26] MEDS: aMILoride 5 MG TAB PO SCH (08:50)
[2022-10-26] MEDS: ESCITALOPRAM OXALATE 10 MG TAB (LEXAPRO) PO SCH (08:50)
[2022-10-26 14:09] LABS: HEMATOCRIT 43.9 % (42.0-52.0); HEMOGLOBIN 14.9 g/dl (13.5-17.5); MEAN CORPUSCULAR HEMOGLOBIN 32.5 pg (27.0-33.0); MEAN CORPUSCULAR HGB CONC 33.9 g/dl (32.0-36.5); MEAN CORPUSCULAR VOLUME 95.9 fl (80.0-96.0); PLATELET COUNT, AUTOMATED 203 10^3/uL (150-450); RED BLOOD COUNT 4.58 10^6/uL (4.30-6.10); WHITE BLOOD COUNT 5.6 10^3/uL (4.0-10.0)
[2022-10-26 14:33] LABS: BLOOD UREA NITROGEN 15 MG/DL (9-23); CALCIUM LEVEL 8.8 MG/DL (8.3-10.6); CARBON DIOXIDE LEVEL 27 MMOL/L (20-31); CHLORIDE LEVEL 108 MMOL/L (98-107); CREATININE FOR GFR 0.67 MG/DL (0.70-1.30); GLOMERULAR FILTRATION RATE > 60.0 (>35); GLUCOSE, FASTING 89 MG/DL (74-106); POTASSIUM SERUM 4.5 MMOL/L (3.5-5.1); SODIUM LEVEL 143 MMOL/L (136-145)
[2022-10-26] MEDS: RIVAROXABAN 10MG TAB (XARELTO) PO SCH (17:44)
[2022-10-27 06:08] VITALS: BP 130/76; TEMP 97.8; O2SAT 96
[2022-10-27] MEDS: ISOSORBIDE DIN. (ISORDIL) 20 MG TAB PO SCH ×2 (09:00→20:00)
[2022-10-27] MEDS: amLODIPine 5 MG TAB PO SCH (09:00)
[2022-10-27] MEDS: NYSTATIN 500,000U/5ML SUSP UDC SS SCH ×3 (09:49→20:01)
[2022-10-27] MEDS: ESCITALOPRAM OXALATE 10 MG TAB (LEXAPRO) PO SCH (09:49)
[2022-10-27] MEDS: CLOPIDOGREL 75 MG TAB PO SCH (09:49)
[2022-10-27] MEDS: aMILoride 5 MG TAB PO SCH (09:49)
[2022-10-27] MEDS: RIVAROXABAN 10MG TAB (XARELTO) PO SCH (17:05)
[2022-10-28 06:11] VITALS: BP 144/83; TEMP 97.9; O2SAT 97
[2022-10-28] MEDS: NYSTATIN 500,000U/5ML SUSP UDC SS SCH ×3 (10:39→20:42)
[2022-10-28] MEDS: ISOSORBIDE DIN. (ISORDIL) 20 MG TAB PO SCH ×2 (10:40→20:42)
[2022-10-28] MEDS: CLOPIDOGREL 75 MG TAB PO SCH (10:40)
[2022-10-28] MEDS: ESCITALOPRAM OXALATE 10 MG TAB (LEXAPRO) PO SCH (10:40)
[2022-10-28] MEDS: aMILoride 5 MG TAB PO SCH (10:41)
[2022-10-28] MEDS: amLODIPine 5 MG TAB PO SCH (10:41)
[2022-10-28] MEDS: RIVAROXABAN 10MG TAB (XARELTO) PO SCH (17:53)
[2022-10-29 05:43] VITALS: BP 146/72; TEMP 97.9; O2SAT 96
[2022-10-29] MEDS: amLODIPine 5 MG TAB PO SCH (09:00)
[2022-10-29] MEDS: ISOSORBIDE DIN. (ISORDIL) 20 MG TAB PO SCH ×2 (09:00→20:30)
[2022-10-29] MEDS: aMILoride 5 MG TAB PO SCH (09:57)
[2022-10-29] MEDS: ESCITALOPRAM OXALATE 10 MG TAB (LEXAPRO) PO SCH (09:57)
[2022-10-29] MEDS: CLOPIDOGREL 75 MG TAB PO SCH (09:57)
[2022-10-29] MEDS: NYSTATIN 500,000U/5ML SUSP UDC SS SCH ×3 (09:58→20:30)
[2022-10-29] MEDS: ACETAMINOPHEN TAB 650MG DOSE (2X325MG) PO PRN (10:26)
[2022-10-29] MEDS: RIVAROXABAN 10MG TAB (XARELTO) PO SCH (18:04)
[2022-10-30 05:31] VITALS: BP 131/71; TEMP 97.9; O2SAT 95
[2022-10-30] MEDS: amLODIPine 5 MG TAB PO SCH (09:00)
[2022-10-30] MEDS: ISOSORBIDE DIN. (ISORDIL) 20 MG TAB PO SCH ×2 (09:00→20:31)
[2022-10-30] MEDS: aMILoride 5 MG TAB PO SCH (09:11)
[2022-10-30] MEDS: CLOPIDOGREL 75 MG TAB PO SCH (09:11)
[2022-10-30] MEDS: ESCITALOPRAM OXALATE 10 MG TAB (LEXAPRO) PO SCH (09:11)
[2022-10-30 13:54] LABS: HEMATOCRIT 46.4 % (42.0-52.0); HEMOGLOBIN 15.1 g/dl (13.5-17.5); MEAN CORPUSCULAR HEMOGLOBIN 32.3 pg (27.0-33.0); MEAN CORPUSCULAR HGB CONC 32.5 g/dl (32.0-36.5); MEAN CORPUSCULAR VOLUME 99.1 fl (80.0-96.0); PLATELET COUNT, AUTOMATED 176 10^3/uL (150-450); RED BLOOD COUNT 4.68 10^6/uL (4.30-6.10); WHITE BLOOD COUNT 5.5 10^3/uL (4.0-10.0)
[2022-10-30 14:16] LABS: BLOOD UREA NITROGEN 18 MG/DL (9-23); CALCIUM LEVEL 8.8 MG/DL (8.3-10.6); CARBON DIOXIDE LEVEL 26 MMOL/L (20-31); CHLORIDE LEVEL 109 MMOL/L (98-107); CREATININE FOR GFR 0.76 MG/DL (0.70-1.30); GLOMERULAR FILTRATION RATE > 60.0 (>35); GLUCOSE, FASTING 100 MG/DL (74-106); POTASSIUM SERUM 4.1 MMOL/L (3.5-5.1); SODIUM LEVEL 140 MMOL/L (136-145)
[2022-10-30] MEDS: RIVAROXABAN 10MG TAB (XARELTO) PO SCH (17:42)
[2022-10-31] MEDS: ACETAMINOPHEN TAB 650MG DOSE (2X325MG) PO PRN (00:32)
[2022-10-31 05:31] VITALS: BP 148/80; TEMP 97.5; O2SAT 96
[2022-10-31] MEDS: CLOPIDOGREL 75 MG TAB PO SCH (08:43)
[2022-10-31] MEDS: aMILoride 5 MG TAB PO SCH (08:43)
[2022-10-31] MEDS: amLODIPine 5 MG TAB PO SCH (08:43)
[2022-10-31] MEDS: ISOSORBIDE DIN. (ISORDIL) 20 MG TAB PO SCH ×2 (08:44→21:00)
[2022-10-31] MEDS: ESCITALOPRAM OXALATE 10 MG TAB (LEXAPRO) PO SCH (08:44)
[2022-10-31] MEDS: RIVAROXABAN 10MG TAB (XARELTO) PO SCH (18:18)
[2022-11-01 04:41] VITALS: BP 134/74; TEMP 97.7
[2022-11-01 05:55] VITALS: O2SAT 94
[2022-11-01] MEDS: amLODIPine 5 MG TAB PO SCH (10:29)
[2022-11-01] MEDS: ESCITALOPRAM OXALATE 10 MG TAB (LEXAPRO) PO SCH (10:29)
[2022-11-01] MEDS: aMILoride 5 MG TAB PO SCH (10:30)
[2022-11-01] MEDS: CLOPIDOGREL 75 MG TAB PO SCH (10:30)
[2022-11-01] MEDS: ISOSORBIDE DIN. (ISORDIL) 20 MG TAB PO SCH ×2 (10:30→21:00)
[2022-11-01] MEDS: RIVAROXABAN 10MG TAB (XARELTO) PO SCH (17:44)
[2022-11-01] MEDS ORDERED: MIRALAX *UNIT DOSE* 17GM PACKET PO PRN (18:20)
[2022-11-01] MEDS ORDERED: SENOKOT S TAB PO PRN (18:20)
[2022-11-01] MEDS: MEGESTROL 400MG 10ML SUSP ORAL SYRINGE *DRAW UP EXACT DOSE PO SCH (18:58)
[2022-11-02 05:52] VITALS: BP 139/78; TEMP 97.7; O2SAT 96
[2022-11-02] MEDS: ISOSORBIDE DIN. (ISORDIL) 20 MG TAB PO SCH ×2 (09:00→20:32)
[2022-11-02] MEDS ORDERED: ESCITALOPRAM OXALATE 5MG TABLET (LEXAPRO) PO SCH (09:00)
[2022-11-02] MEDS: MEGESTROL 400MG 10ML SUSP ORAL SYRINGE *DRAW UP EXACT DOSE PO SCH (10:39)
[2022-11-02] MEDS: amLODIPine 5 MG TAB PO SCH (10:42)
[2022-11-02] MEDS: ESCITALOPRAM OXALATE 10 MG TAB (LEXAPRO) PO SCH (10:42)
[2022-11-02] MEDS: CLOPIDOGREL 75 MG TAB PO SCH (10:42)
[2022-11-02] MEDS: aMILoride 5 MG TAB PO SCH (10:42)
[2022-11-02] MEDS: RIVAROXABAN 10MG TAB (XARELTO) PO SCH (19:00)
[2022-11-02 20:32] VITALS: BP 133/88
[2022-11-03 05:56] VITALS: BP 148/66; TEMP 97.7; O2SAT 97
[2022-11-03] MEDS: ISOSORBIDE DIN. (ISORDIL) 20 MG TAB PO SCH ×2 (10:27→20:37)
[2022-11-03] MEDS: amLODIPine 5 MG TAB PO SCH (10:28)
[2022-11-03] MEDS: CLOPIDOGREL 75 MG TAB PO SCH (10:28)
[2022-11-03] MEDS: ESCITALOPRAM OXALATE 10 MG TAB (LEXAPRO) PO SCH (10:29)
[2022-11-03] MEDS: aMILoride 5 MG TAB PO SCH (10:29)
[2022-11-03] MEDS: MEGESTROL 400MG 10ML SUSP ORAL SYRINGE *DRAW UP EXACT DOSE PO SCH (10:30)
[2022-11-03] MEDS: RIVAROXABAN 10MG TAB (XARELTO) PO SCH (17:51)
[2022-11-04 06:42] VITALS: BP 109/62; TEMP 98.1; O2SAT 96
[2022-11-04] MEDS: ISOSORBIDE DIN. (ISORDIL) 20 MG TAB PO SCH ×2 (08:59→19:43)
[2022-11-04] MEDS: ESCITALOPRAM OXALATE 10 MG TAB (LEXAPRO) PO SCH (09:00)
[2022-11-04] MEDS: amLODIPine 5 MG TAB PO SCH (09:00)
[2022-11-04] MEDS: CLOPIDOGREL 75 MG TAB PO SCH (09:01)
[2022-11-04] MEDS: MEGESTROL 400MG 10ML SUSP ORAL SYRINGE *DRAW UP EXACT DOSE PO SCH (09:02)
[2022-11-04] MEDS: aMILoride 5 MG TAB PO SCH (09:08)
[2022-11-04] MEDS ORDERED: MIRALAX *UNIT DOSE* 17GM PACKET PO PRN (14:55)
[2022-11-04] MEDS ORDERED: SENOKOT S TAB PO PRN (14:55)
[2022-11-04] MEDS ORDERED: FLEET ENEMA PR PRN (14:55)
[2022-11-04] MEDS: RIVAROXABAN 10MG TAB (XARELTO) PO SCH (17:28)
[2022-11-05 06:00] VITALS: BP 128/66; TEMP 97.7; O2SAT 95
[2022-11-05] MEDS: amLODIPine 5 MG TAB PO SCH (09:00)
[2022-11-05] MEDS: ISOSORBIDE DIN. (ISORDIL) 20 MG TAB PO SCH ×2 (09:00→20:27)
[2022-11-05] MEDS: ESCITALOPRAM OXALATE 10 MG TAB (LEXAPRO) PO SCH (09:22)
[2022-11-05] MEDS: aMILoride 5 MG TAB PO SCH (09:22)
[2022-11-05] MEDS: CLOPIDOGREL 75 MG TAB PO SCH (09:22)
[2022-11-05] MEDS: MEGESTROL 400MG 10ML SUSP ORAL SYRINGE *DRAW UP EXACT DOSE PO SCH (09:22)
[2022-11-05] MEDS: RIVAROXABAN 10MG TAB (XARELTO) PO SCH (17:08)
[2022-11-06 06:00] VITALS: BP 118/61; TEMP 97.7; O2SAT 96
[2022-11-06] MEDS: ISOSORBIDE DIN. (ISORDIL) 20 MG TAB PO SCH ×2 (09:00→20:06)
[2022-11-06] MEDS: ESCITALOPRAM OXALATE 10 MG TAB (LEXAPRO) PO SCH (10:10)
[2022-11-06] MEDS: amLODIPine 5 MG TAB PO SCH (10:12)
[2022-11-06] MEDS: CLOPIDOGREL 75 MG TAB PO SCH (10:12)
[2022-11-06] MEDS: aMILoride 5 MG TAB PO SCH (11:39)
[2022-11-06] MEDS: MEGESTROL 400MG 10ML SUSP ORAL SYRINGE *DRAW UP EXACT DOSE PO SCH (11:40)
[2022-11-06] MEDS: RIVAROXABAN 10MG TAB (XARELTO) PO SCH (17:53)
[2022-11-07 05:28] VITALS: BP 140/68; TEMP 97.5; O2SAT 96
[2022-11-07] MEDS: CLOPIDOGREL 75 MG TAB PO SCH (08:28)
[2022-11-07] MEDS: ESCITALOPRAM OXALATE 10 MG TAB (LEXAPRO) PO SCH (08:28)
[2022-11-07] MEDS: aMILoride 5 MG TAB PO SCH (08:28)
[2022-11-07] MEDS: MEGESTROL 400MG 10ML SUSP ORAL SYRINGE *DRAW UP EXACT DOSE PO SCH (08:28)
[2022-11-07] MEDS: ISOSORBIDE DIN. (ISORDIL) 20 MG TAB PO SCH ×2 (08:29→19:58)
[2022-11-07] MEDS: amLODIPine 5 MG TAB PO SCH (08:29)
[2022-11-07] MEDS: RIVAROXABAN 10MG TAB (XARELTO) PO SCH (17:37)
[2022-11-08 06:43] VITALS: BP 162/81; TEMP 97.5; O2SAT 98
[2022-11-08] MEDS: amLODIPine 5 MG TAB PO SCH (09:00)
[2022-11-08] MEDS: ISOSORBIDE DIN. (ISORDIL) 20 MG TAB PO SCH ×2 (09:00→20:54)
[2022-11-08] MEDS: MEGESTROL 400MG 10ML SUSP ORAL SYRINGE *DRAW UP EXACT DOSE PO SCH (09:21)
[2022-11-08] MEDS: aMILoride 5 MG TAB PO SCH (09:21)
[2022-11-08] MEDS: ESCITALOPRAM OXALATE 10 MG TAB (LEXAPRO) PO SCH (09:21)
[2022-11-08] MEDS: CLOPIDOGREL 75 MG TAB PO SCH (09:23)
[2022-11-08] MEDS: RIVAROXABAN 10MG TAB (XARELTO) PO SCH (17:59)
[2022-11-09 05:32] VITALS: BP 147/75; TEMP 97.7; O2SAT 97
[2022-11-09] MEDS: ESCITALOPRAM OXALATE 10 MG TAB (LEXAPRO) PO SCH (07:59)
[2022-11-09] MEDS: MEGESTROL 400MG 10ML SUSP ORAL SYRINGE *DRAW UP EXACT DOSE PO SCH (07:59)
[2022-11-09] MEDS: aMILoride 5 MG TAB PO SCH (08:00)
[2022-11-09] MEDS: CLOPIDOGREL 75 MG TAB PO SCH (08:02)
[2022-11-09] MEDS: amLODIPine 5 MG TAB PO SCH (08:02)
[2022-11-09] MEDS: ISOSORBIDE DIN. (ISORDIL) 20 MG TAB PO SCH ×2 (08:04→20:23)
[2022-11-09] MEDS: RIVAROXABAN 10MG TAB (XARELTO) PO SCH (17:31)
[2022-11-10 05:19] VITALS: BP 151/76; TEMP 97.9; O2SAT 96
[2022-11-10] MEDS: CLOPIDOGREL 75 MG TAB PO SCH (09:05)
[2022-11-10] MEDS: ESCITALOPRAM OXALATE 10 MG TAB (LEXAPRO) PO SCH (09:05)
[2022-11-10] MEDS: aMILoride 5 MG TAB PO SCH (09:05)
[2022-11-10] MEDS: MEGESTROL 400MG 10ML SUSP ORAL SYRINGE *DRAW UP EXACT DOSE PO SCH (09:05)
[2022-11-10] MEDS: amLODIPine 5 MG TAB PO SCH (09:07)
[2022-11-10] MEDS: ISOSORBIDE DIN. (ISORDIL) 20 MG TAB PO SCH ×2 (09:07→20:15)
[2022-11-10] MEDS: RIVAROXABAN 10MG TAB (XARELTO) PO SCH (17:38)
[2022-11-11 06:00] VITALS: BP 143/69; TEMP 97.5; O2SAT 96
[2022-11-11] MEDS: ISOSORBIDE DIN. (ISORDIL) 20 MG TAB PO SCH ×2 (09:00→21:06)
[2022-11-11] MEDS: MEGESTROL 400MG 10ML SUSP ORAL SYRINGE *DRAW UP EXACT DOSE PO SCH (11:09)
[2022-11-11] MEDS: amLODIPine 5 MG TAB PO SCH (11:11)
[2022-11-11] MEDS: CLOPIDOGREL 75 MG TAB PO SCH (11:12)
[2022-11-11] MEDS: aMILoride 5 MG TAB PO SCH (11:12)
[2022-11-11] MEDS: ESCITALOPRAM OXALATE 10 MG TAB (LEXAPRO) PO SCH (11:13)
[2022-11-11] MEDS: RIVAROXABAN 10MG TAB (XARELTO) PO SCH (18:44)
[2022-11-12 06:00] VITALS: BP 129/67; TEMP 97.7; O2SAT 97
[2022-11-12] MEDS: ISOSORBIDE DIN. (ISORDIL) 20 MG TAB PO SCH ×2 (09:00→21:00)
[2022-11-12] MEDS: CLOPIDOGREL 75 MG TAB PO SCH (10:24)
[2022-11-12] MEDS: MEGESTROL 400MG 10ML SUSP ORAL SYRINGE *DRAW UP EXACT DOSE PO SCH (10:24)
[2022-11-12] MEDS: ESCITALOPRAM OXALATE 10 MG TAB (LEXAPRO) PO SCH (10:24)
[2022-11-12] MEDS: aMILoride 5 MG TAB PO SCH (10:24)
[2022-11-12] MEDS: amLODIPine 5 MG TAB PO SCH (10:27)
[2022-11-12] MEDS: RIVAROXABAN 10MG TAB (XARELTO) PO SCH (17:36)
[2022-11-13 06:00] VITALS: BP 161/80; TEMP 97.7; O2SAT 97
[2022-11-13] MEDS: ISOSORBIDE DIN. (ISORDIL) 20 MG TAB PO SCH ×2 (09:00→10:00)
[2022-11-13 09:57] VITALS: BP 132/62
[2022-11-13] MEDS: amLODIPine 5 MG TAB PO SCH (09:59)
[2022-11-13] MEDS: ESCITALOPRAM OXALATE 10 MG TAB (LEXAPRO) PO SCH (10:00)
[2022-11-13] MEDS: CLOPIDOGREL 75 MG TAB PO SCH (10:00)
[2022-11-13] MEDS: MEGESTROL 400MG 10ML SUSP ORAL SYRINGE *DRAW UP EXACT DOSE PO SCH (10:01)
[2022-11-13] MEDS: aMILoride 5 MG TAB PO SCH (10:01)
[2022-11-13] MEDS: RIVAROXABAN 10MG TAB (XARELTO) PO SCH (18:17)
[2022-11-13] MEDS: MOM 30ML SUSPENSION UDC PO PRN (18:18)
[2022-11-14 06:00] VITALS: BP 149/77; TEMP 97.5; O2SAT 8
[2022-11-14] MEDS: ISOSORBIDE DIN. (ISORDIL) 20 MG TAB PO SCH ×2 (09:00→21:35)
[2022-11-14 11:21] VITALS: BP 133/64
[2022-11-14] MEDS: aMILoride 5 MG TAB PO SCH (11:23)
[2022-11-14] MEDS: CLOPIDOGREL 75 MG TAB PO SCH (11:23)
[2022-11-14] MEDS: ESCITALOPRAM OXALATE 10 MG TAB (LEXAPRO) PO SCH (11:23)
[2022-11-14] MEDS: amLODIPine 5 MG TAB PO SCH (11:24)
[2022-11-14] MEDS: MEGESTROL 400MG 10ML SUSP ORAL SYRINGE *DRAW UP EXACT DOSE PO SCH (11:24)
[2022-11-14] MEDS: MOM 30ML SUSPENSION UDC PO PRN (11:24)
[2022-11-14] MEDS: RIVAROXABAN 10MG TAB (XARELTO) PO SCH (17:25)
[2022-11-15 05:38] VITALS: BP 164/84; TEMP 97.9; O2SAT 98
[2022-11-15] MEDS: ISOSORBIDE DIN. (ISORDIL) 20 MG TAB PO SCH ×2 (09:00→21:51)
[2022-11-15] MEDS: MEGESTROL 400MG 10ML SUSP ORAL SYRINGE *DRAW UP EXACT DOSE PO SCH (09:23)
[2022-11-15] MEDS: MOM 30ML SUSPENSION UDC PO PRN (09:23)
[2022-11-15] MEDS: CLOPIDOGREL 75 MG TAB PO SCH (09:24)
[2022-11-15] MEDS: ESCITALOPRAM OXALATE 10 MG TAB (LEXAPRO) PO SCH (09:24)
[2022-11-15] MEDS: amLODIPine 5 MG TAB PO SCH (09:25)
[2022-11-15] MEDS: aMILoride 5 MG TAB PO SCH (09:25)
[2022-11-15] MEDS: RIVAROXABAN 10MG TAB (XARELTO) PO SCH (17:02)
[2022-11-16 06:05] VITALS: BP 151/79; TEMP 97.9; O2SAT 95
[2022-11-16] MEDS: MOM 30ML SUSPENSION UDC PO PRN (07:45)
[2022-11-16] MEDS: amLODIPine 5 MG TAB PO SCH (07:46)
[2022-11-16] MEDS: MEGESTROL 400MG 10ML SUSP ORAL SYRINGE *DRAW UP EXACT DOSE PO SCH (07:46)
[2022-11-16] MEDS: ESCITALOPRAM OXALATE 10 MG TAB (LEXAPRO) PO SCH (07:46)
[2022-11-16] MEDS: CLOPIDOGREL 75 MG TAB PO SCH (07:46)
[2022-11-16] MEDS: aMILoride 5 MG TAB PO SCH (07:46)
[2022-11-16] MEDS: ISOSORBIDE DIN. (ISORDIL) 20 MG TAB PO SCH ×2 (07:47→21:48)
[2022-11-16] MEDS: RIVAROXABAN 10MG TAB (XARELTO) PO SCH (17:03)
[2022-11-17 06:00] VITALS: BP 132/80; TEMP 97.3; O2SAT 97
[2022-11-17] MEDS: ISOSORBIDE DIN. (ISORDIL) 20 MG TAB PO SCH ×2 (09:00→21:00)
[2022-11-17] MEDS: aMILoride 5 MG TAB PO SCH (09:22)
[2022-11-17] MEDS: CLOPIDOGREL 75 MG TAB PO SCH (09:22)
[2022-11-17] MEDS: ESCITALOPRAM OXALATE 10 MG TAB (LEXAPRO) PO SCH (09:22)
[2022-11-17] MEDS: amLODIPine 5 MG TAB PO SCH (09:25)
[2022-11-17] MEDS: MEGESTROL 400MG 10ML SUSP ORAL SYRINGE *DRAW UP EXACT DOSE PO SCH (09:25)
[2022-11-17] MEDS: RIVAROXABAN 10MG TAB (XARELTO) PO SCH (18:26)
[2022-11-18 06:00] VITALS: BP 131/78; TEMP 97.5; O2SAT 96
[2022-11-18] MEDS: ESCITALOPRAM OXALATE 10 MG TAB (LEXAPRO) PO SCH (09:25)
[2022-11-18] MEDS: CLOPIDOGREL 75 MG TAB PO SCH (09:25)
[2022-11-18] MEDS: aMILoride 5 MG TAB PO SCH (09:26)
[2022-11-18] MEDS: amLODIPine 5 MG TAB PO SCH (09:27)
[2022-11-18] MEDS: MEGESTROL 400MG 10ML SUSP ORAL SYRINGE *DRAW UP EXACT DOSE PO SCH (09:27)
[2022-11-18] MEDS: ISOSORBIDE DIN. (ISORDIL) 20 MG TAB PO SCH ×2 (09:27→21:00)
[2022-11-18] MEDS: RIVAROXABAN 10MG TAB (XARELTO) PO SCH (17:53)
[2022-11-19 06:00] VITALS: BP 153/81; TEMP 97.5; O2SAT 96
[2022-11-19] MEDS: ISOSORBIDE DIN. (ISORDIL) 20 MG TAB PO SCH ×2 (09:00→21:00)
[2022-11-19] MEDS: CLOPIDOGREL 75 MG TAB PO SCH (09:21)
[2022-11-19] MEDS: aMILoride 5 MG TAB PO SCH (09:21)
[2022-11-19] MEDS: ESCITALOPRAM OXALATE 10 MG TAB (LEXAPRO) PO SCH (09:22)
[2022-11-19] MEDS: MEGESTROL 400MG 10ML SUSP ORAL SYRINGE *DRAW UP EXACT DOSE PO SCH (09:22)
[2022-11-19] MEDS: amLODIPine 5 MG TAB PO SCH (09:22)
[2022-11-19] MEDS: RIVAROXABAN 10MG TAB (XARELTO) PO SCH (17:39)
[2022-11-20 05:56] VITALS: BP 147/71; TEMP 97.5; O2SAT 97
[2022-11-20] MEDS: ISOSORBIDE DIN. (ISORDIL) 20 MG TAB PO SCH ×2 (08:48→20:04)
[2022-11-20] MEDS: amLODIPine 5 MG TAB PO SCH (08:48)
[2022-11-20] MEDS: CLOPIDOGREL 75 MG TAB PO SCH (08:54)
[2022-11-20] MEDS: MEGESTROL 400MG 10ML SUSP ORAL SYRINGE *DRAW UP EXACT DOSE PO SCH (08:54)
[2022-11-20] MEDS: ESCITALOPRAM OXALATE 10 MG TAB (LEXAPRO) PO SCH (08:54)
[2022-11-20] MEDS: aMILoride 5 MG TAB PO SCH (08:54)
[2022-11-20] MEDS: RIVAROXABAN 10MG TAB (XARELTO) PO SCH (17:28)
[2022-11-21 06:00] VITALS: BP 127/59; TEMP 98.2; O2SAT 97
[2022-11-21] MEDS: ISOSORBIDE DIN. (ISORDIL) 20 MG TAB PO SCH ×2 (09:00→19:52)
[2022-11-21] MEDS: amLODIPine 5 MG TAB PO SCH (09:00)
[2022-11-21] MEDS: aMILoride 5 MG TAB PO SCH (09:46)
[2022-11-21] MEDS: ESCITALOPRAM OXALATE 10 MG TAB (LEXAPRO) PO SCH (09:46)
[2022-11-21] MEDS: CLOPIDOGREL 75 MG TAB PO SCH (09:46)
[2022-11-21] MEDS: MEGESTROL 400MG 10ML SUSP ORAL SYRINGE *DRAW UP EXACT DOSE PO SCH (09:47)
[2022-11-21] MEDS: RIVAROXABAN 10MG TAB (XARELTO) PO SCH (17:48)
[2022-11-22 05:58] VITALS: BP 157/84; TEMP 97.7; O2SAT 97
[2022-11-22] MEDS: aMILoride 5 MG TAB PO SCH (08:59)
[2022-11-22] MEDS: CLOPIDOGREL 75 MG TAB PO SCH (08:59)
[2022-11-22] MEDS: MEGESTROL 400MG 10ML SUSP ORAL SYRINGE *DRAW UP EXACT DOSE PO SCH (08:59)
[2022-11-22] MEDS: ESCITALOPRAM OXALATE 10 MG TAB (LEXAPRO) PO SCH (08:59)
[2022-11-22] MEDS: ISOSORBIDE DIN. (ISORDIL) 20 MG TAB PO SCH ×2 (09:00→22:04)
[2022-11-22] MEDS: amLODIPine 5 MG TAB PO SCH (09:00)
[2022-11-22] MEDS: RIVAROXABAN 10MG TAB (XARELTO) PO SCH (18:23)
[2022-11-23 05:19] VITALS: BP 157/78; TEMP 98.4; O2SAT 97
[2022-11-23] MEDS: aMILoride 5 MG TAB PO SCH (07:54)
[2022-11-23] MEDS: amLODIPine 5 MG TAB PO SCH (07:54)
[2022-11-23] MEDS: MEGESTROL 400MG 10ML SUSP ORAL SYRINGE *DRAW UP EXACT DOSE PO SCH (07:54)
[2022-11-23] MEDS: CLOPIDOGREL 75 MG TAB PO SCH (07:55)
[2022-11-23] MEDS: ESCITALOPRAM OXALATE 10 MG TAB (LEXAPRO) PO SCH (07:55)
[2022-11-23] MEDS: ISOSORBIDE DIN. (ISORDIL) 20 MG TAB PO SCH ×2 (07:55→21:17)
[2022-11-23] MEDS: RIVAROXABAN 10MG TAB (XARELTO) PO SCH (17:51)
[2022-11-24 05:58] VITALS: BP 157/79; TEMP 98.1; O2SAT 96
[2022-11-24] MEDS: MEGESTROL 400MG 10ML SUSP ORAL SYRINGE *DRAW UP EXACT DOSE PO SCH (09:52)
[2022-11-24] MEDS: ESCITALOPRAM OXALATE 10 MG TAB (LEXAPRO) PO SCH (09:53)
[2022-11-24] MEDS: CLOPIDOGREL 75 MG TAB PO SCH (09:53)
[2022-11-24] MEDS: aMILoride 5 MG TAB PO SCH (09:53)
[2022-11-24] MEDS: amLODIPine 5 MG TAB PO SCH (09:53)
[2022-11-24] MEDS: ISOSORBIDE DIN. (ISORDIL) 20 MG TAB PO SCH ×2 (09:54→20:30)
[2022-11-24] MEDS: RIVAROXABAN 10MG TAB (XARELTO) PO SCH (19:07)
[2022-11-25 06:09] VITALS: BP 136/67; TEMP 98.4; O2SAT 96
[2022-11-25] MEDS: MEGESTROL 400MG 10ML SUSP ORAL SYRINGE *DRAW UP EXACT DOSE PO SCH (09:21)
[2022-11-25] MEDS: CLOPIDOGREL 75 MG TAB PO SCH (09:22)
[2022-11-25] MEDS: aMILoride 5 MG TAB PO SCH (09:22)
[2022-11-25] MEDS: ESCITALOPRAM OXALATE 10 MG TAB (LEXAPRO) PO SCH (09:22)
[2022-11-25] MEDS: amLODIPine 5 MG TAB PO SCH (09:23)
[2022-11-25] MEDS: ISOSORBIDE DIN. (ISORDIL) 20 MG TAB PO SCH ×2 (09:23→20:22)
[2022-11-25] MEDS: RIVAROXABAN 10MG TAB (XARELTO) PO SCH (17:13)
[2022-11-26 05:27] VITALS: BP 144/81; TEMP 97.3; O2SAT 97
[2022-11-26] MEDS: ESCITALOPRAM OXALATE 10 MG TAB (LEXAPRO) PO SCH (08:41)
[2022-11-26] MEDS: MEGESTROL 400MG 10ML SUSP ORAL SYRINGE *DRAW UP EXACT DOSE PO SCH (08:42)
[2022-11-26] MEDS: CLOPIDOGREL 75 MG TAB PO SCH (08:42)
[2022-11-26] MEDS: amLODIPine 5 MG TAB PO SCH (08:43)
[2022-11-26] MEDS: ISOSORBIDE DIN. (ISORDIL) 20 MG TAB PO SCH ×2 (08:43→20:00)
[2022-11-26] MEDS: aMILoride 5 MG TAB PO SCH (08:49)
[2022-11-26] MEDS: RIVAROXABAN 10MG TAB (XARELTO) PO SCH (17:37)
[2022-11-27 06:00] VITALS: BP 168/70; TEMP 97.7; O2SAT 96
[2022-11-27] MEDS: aMILoride 5 MG TAB PO SCH (09:33)
[2022-11-27] MEDS: amLODIPine 5 MG TAB PO SCH (09:34)
[2022-11-27] MEDS: ESCITALOPRAM OXALATE 10 MG TAB (LEXAPRO) PO SCH (09:34)
[2022-11-27] MEDS: CLOPIDOGREL 75 MG TAB PO SCH (09:34)
[2022-11-27] MEDS: ISOSORBIDE DIN. (ISORDIL) 20 MG TAB PO SCH ×2 (09:34→21:44)
[2022-11-27] MEDS: MEGESTROL 400MG 10ML SUSP ORAL SYRINGE *DRAW UP EXACT DOSE PO SCH (09:35)
[2022-11-27] MEDS: RIVAROXABAN 10MG TAB (XARELTO) PO SCH (17:20)
[2022-11-28 05:27] VITALS: BP 166/92; TEMP 97.9; O2SAT 96
[2022-11-28] MEDS: CLOPIDOGREL 75 MG TAB PO SCH (09:30)
[2022-11-28] MEDS: MEGESTROL 400MG 10ML SUSP ORAL SYRINGE *DRAW UP EXACT DOSE PO SCH (09:30)
[2022-11-28] MEDS: ESCITALOPRAM OXALATE 10 MG TAB (LEXAPRO) PO SCH (09:31)
[2022-11-28] MEDS: aMILoride 5 MG TAB PO SCH (09:31)
[2022-11-28] MEDS: ISOSORBIDE DIN. (ISORDIL) 20 MG TAB PO SCH ×2 (09:32→20:31)
[2022-11-28] MEDS: amLODIPine 5 MG TAB PO SCH (09:32)
[2022-11-28] MEDS: RIVAROXABAN 10MG TAB (XARELTO) PO SCH (18:12)
[2022-11-28] MEDS: CHLORASEPTIC SPRAY MT PRN (20:29)
[2022-11-29 05:30] VITALS: BP 153/86; TEMP 97.7; O2SAT 96
[2022-11-29] MEDS ORDERED: ISOS20TA4 PO (08:50)
[2022-11-29] MEDS ORDERED: SENN-52 PO (08:50)
[2022-11-29] MEDS ORDERED: AMLO1TAB24 PO (08:50)
[2022-11-29] MEDS ORDERED: XARE10TA PO (08:50)
[2022-11-29] MEDS: CLOPIDOGREL 75 MG TAB PO SCH (08:55)
[2022-11-29] MEDS: MEGESTROL 400MG 10ML SUSP ORAL SYRINGE *DRAW UP EXACT DOSE PO SCH (08:55)
[2022-11-29 08:56] VITALS: BP 147/81
[2022-11-29] MEDS: ISOSORBIDE DIN. (ISORDIL) 20 MG TAB PO SCH (08:56)
[2022-11-29] MEDS: amLODIPine 5 MG TAB PO SCH (08:56)
[2022-11-29] MEDS: ESCITALOPRAM OXALATE 10 MG TAB (LEXAPRO) PO SCH (08:57)
[2022-11-29] MEDS: aMILoride 5 MG TAB PO SCH (09:01)
[2022-11-29] MEDS: CHLORASEPTIC SPRAY MT PRN (09:04)
== END 2022-11-29 11:15 ==
LOC: EDBD 10:47 → M ED 10:47 → M ED INP 10:48 → ENRESERV 14:52 → M MS5PR 15:40
PROVIDERS: ADMIT General Practice; ATTEND General Practice
DX: R62.7 Adult failure to thrive (principal); A52.17 General paresis; I69.354 Hemiplegia and hemiparesis following cerebral infarction affecting left non-dominant side; E78.5 Hyperlipidemia, unspecified; M10.9 Gout, unspecified; N18.30 Chronic kidney disease, stage 3 unspecified; F32.A Depression, unspecified; R26.89 Other abnormalities of gait and mobility; R53.1 Weakness; L89.122 Pressure ulcer of left upper back, stage 2; L89.152 Pressure ulcer of sacral region, stage 2; I12.9 Hypertensive chronic kidney disease with stage 1 through stage 4 chronic kidney disease, or unspecified chronic kidney disease; Z74.1 Need for assistance with personal care; R15.9 Full incontinence of feces; R32 Unspecified urinary incontinence; N40.0 Benign prostatic hyperplasia without lower urinary tract symptoms; E46 Unspecified protein-calorie malnutrition; Z90.49 Acquired absence of other specified parts of digestive tract; Z79.899 Other long term (current) drug therapy; Z88.0 Allergy status to penicillin; Z20.822 Contact with and (suspected) exposure to COVID-19
CPT/HCPCS: 36415; 70450; 80048; 85025; 85027; 87430; 87631; 87635; 92526; 92610; 96372; 99285; G0378; J1650

== ENCOUNTER → 2022-12-09 | Outpatient (REF) | payer MEDICARE, MEDICAID ==
[~2022-12-09] MED LIST changes: +ACET-897 PO; +AMLO1TAB24 PO; +ISOS20TA4 PO; +LEXA1TAB PO; +SENN-52 PO; +XARE10TA PO; +med rec comment
== END ==
LOC: SKLAB7 07:00
PROVIDERS: ATTEND Internal Medicine
DX: Z11.1 Encounter for screening for respiratory tuberculosis (principal)

== ENCOUNTER → 2023-03-02 | Outpatient (REF) | payer MEDICARE, MEDICAID | LOC: SKLAB7 10:38 | PROVIDERS: ATTEND Internal Medicine | DX: Z53.8 Procedure and treatment not carried out for other reasons (principal) ==

== ENCOUNTER → 2023-09-11 | Outpatient (REF) | payer MEDICARE, MEDICAID ==
[2023-09-11 15:06] LABS: HEMATOCRIT 39.6 % (42.0-52.0); HEMOGLOBIN 13.4 g/dl (13.5-17.5); MEAN CORPUSCULAR HEMOGLOBIN 32.8 pg (27.0-33.0); MEAN CORPUSCULAR HGB CONC 33.8 g/dl (32.0-36.5); MEAN CORPUSCULAR VOLUME 96.8 fl (80.0-96.0); PLATELET COUNT, AUTOMATED 182 10^3/uL (150-450); RED BLOOD COUNT 4.09 10^6/uL (4.30-6.10); WHITE BLOOD COUNT 4.9 10^3/uL (4.0-10.0)
[2023-09-11 15:35] LABS: BLOOD UREA NITROGEN 29 MG/DL (9-23); CALCIUM LEVEL 8.6 MG/DL (8.3-10.6); CARBON DIOXIDE LEVEL 27 MMOL/L (20-31); CHLORIDE LEVEL 110 MMOL/L (98-107); CHOLESTEROL LEVEL 119 MG/DL (<200); CHOLESTEROL RISK RATIO 3.44 (<5); GLOMERULAR FILTRATION RATE > 60.0 (>35); GLUCOSE, FASTING 120 MG/DL (74-106); HDL CHOLESTEROL 34.5 MG/DL (>40); LDL CHOLESTEROL 70.5 MG/DL (<100); NON-HDL-C 84.5 MG/DL; PHOSPHORUS LEVEL 3.2 MG/DL (2.4-5.1); POTASSIUM SERUM 3.8 MMOL/L (3.5-5.1); PTH INTACT 103.6 PG/ML (18.5-88.0); SODIUM LEVEL 142 MMOL/L (136-145); TRIGLYCERIDES LEVEL 70 MG/DL (<150)
[2023-09-11 15:38] LABS: TOTAL 25(OH) VITAMIN D 24.6 NG/ML (20.0-100.0)
== END ==
LOC: SKLAB7 14:14
PROVIDERS: ATTEND Internal Medicine
DX: E78.5 Hyperlipidemia, unspecified (principal); N18.9 Chronic kidney disease, unspecified; I12.9 Hypertensive chronic kidney disease with stage 1 through stage 4 chronic kidney disease, or unspecified chronic kidney disease; Z79.899 Other long term (current) drug therapy

== ENCOUNTER → 2024-01-15 | Outpatient (REF) | LOC: SKLAB7 21:15 | PROVIDERS: ATTEND Internal Medicine | DX: R06.02 Shortness of breath (principal); R91.8 Other nonspecific abnormal finding of lung field; K56.7 Ileus, unspecified ==

== ENCOUNTER → 2024-01-16 | Outpatient (REF) | payer MEDICARE, MEDICAID ==
[2024-01-16 11:14] LABS: HEMOGLOBIN 13.7 g/dl (13.5-17.5); MEAN CORPUSCULAR HEMOGLOBIN 32.2 pg (27.0-33.0); MEAN CORPUSCULAR HGB CONC 32.6 g/dl (32.0-36.5); MEAN CORPUSCULAR VOLUME 98.6 fl (80.0-96.0); PLATELET COUNT, AUTOMATED 126 10^3/uL (150-450); RED BLOOD COUNT 4.26 10^6/uL (4.30-6.10); WHITE BLOOD COUNT 5.5 10^3/uL (4.0-10.0)
[2024-01-16 11:42] LABS: CALCIUM LEVEL 8.2 MG/DL (8.3-10.6); CREATININE FOR GFR 1.61 MG/DL (0.70-1.30); GLOMERULAR FILTRATION RATE 43.6 (>35); POTASSIUM SERUM 4.4 MMOL/L (3.5-5.1)
== END ==
LOC: SKLAB7 10:09
PROVIDERS: ATTEND Internal Medicine
DX: K59.00 Constipation, unspecified (principal)

== ENCOUNTER → 2024-01-17 | Outpatient (REF) | payer MEDICARE, MEDICAID ==
[2024-01-17 08:53] LABS: HEMATOCRIT 42.8 % (42.0-52.0); HEMOGLOBIN 13.5 g/dl (13.5-17.5); MEAN CORPUSCULAR HEMOGLOBIN 31.6 pg (27.0-33.0); MEAN CORPUSCULAR HGB CONC 31.5 g/dl (32.0-36.5); MEAN CORPUSCULAR VOLUME 100.2 fl (80.0-96.0); PLATELET COUNT, AUTOMATED 126 10^3/uL (150-450); RED BLOOD COUNT 4.27 10^6/uL (4.30-6.10); WHITE BLOOD COUNT 6.8 10^3/uL (4.0-10.0)
[2024-01-17 09:18] LABS: CALCIUM LEVEL 8.4 MG/DL (8.3-10.6); CREATININE FOR GFR 1.32 MG/DL (0.70-1.30); GLOMERULAR FILTRATION RATE 54.9 (>35); POTASSIUM SERUM 4.3 MMOL/L (3.5-5.1)
== END ==
LOC: SKLAB7 07:44
PROVIDERS: ATTEND Internal Medicine
DX: N17.9 Acute kidney failure, unspecified (principal)